=== PATIENT | female | born 1950 | race Caucasian/White ===

== ENCOUNTER 2019-01-19 10:13 | Day surgery (SDC) | payer MEDICARE ==
[~2019-01-19] VITALS: Ht 180.3 cm; Wt 72.6 kg
[2019-01-19] MEDS ORDERED: Triamterene W/1 EACH (10:30)
[2019-01-19] MEDS ORDERED: ATEN50 (10:30)
[2019-01-19] MEDS ORDERED: ASPI325EC (10:30)
[2019-01-19] MEDS ORDERED: Klor-Con 1010 MEQ (10:31)
[2019-01-19] MEDS ORDERED: SERT50 (10:32)
[2019-01-19] MEDS ORDERED: SERT100 (10:32)
[2019-01-19] MEDS ORDERED: OMEPRAZOLE MAGN20 MG (10:33)
[2019-01-19] MEDS ORDERED: Levothyroxine200 MCG PO (10:33)
[2019-01-19] MEDS ORDERED: FOLI1 (10:34)
[2019-01-19] MEDS ORDERED: FISH OIL 1,0001 EAC1 (10:34)
[2019-01-19] MEDS ORDERED: ERGO400 (10:34)
[2019-01-19] MEDS ORDERED: CALCIUM (10:35)
[2019-01-19] MEDS ORDERED: POTCHL10ER (10:36)
[2019-01-19] MEDS ORDERED: GLUCOSAMINE &1 EACH (10:36)
[2019-01-19] MEDS ORDERED: Zoloft50 MG (10:37)
--- NOTE | 2019-01-19 11:22 | NUR ---
01/19/19 1122 Jake Morrow PROBE USED FOR GASTRIC AVMS
--- NOTE | 2019-01-19 12:15 | NUR ---
01/19/19 1215 Arely Vernon REC'D REPORT FROM JENNIE BALLESTEROS ON PT UPON ARRIVAL TO STEP DOWN UNIT. PT AWAKE, TALKING, DENIES ANY PAIN OR CHEST PAIN AT THIS TIME. WILL DO AN EKG ORDERED BY MD FRANKLIN POST PROCEDURE.
== END 2019-01-19 13:10 | disposition home or self-care (01) ==
LOC: ORSCSDS 10:13
PROVIDERS: Internal Medicine Gastroenterology
PROC: 0DB98ZX Excision of Duodenum, Via Natural or Artificial Opening Endoscopic, Diagnostic (ICD-10-PCS; principal; 2019-01-19 11:30)
PROC: 0DBP8ZX Excision of Rectum, Via Natural or Artificial Opening Endoscopic, Diagnostic (ICD-10-PCS; principal; 2019-01-19 11:30)
PROC: 0DB68ZX Excision of Stomach, Via Natural or Artificial Opening Endoscopic, Diagnostic (ICD-10-PCS; principal; 2019-01-19 11:30)
PROC: 0DB58ZX Excision of Esophagus, Via Natural or Artificial Opening Endoscopic, Diagnostic (ICD-10-PCS; principal; 2019-01-19 11:30)
PROC: 0DBK8ZX Excision of Ascending Colon, Via Natural or Artificial Opening Endoscopic, Diagnostic (ICD-10-PCS; principal; 2019-01-19 11:30)
DX: K21.9 Gastro-esophageal reflux disease without esophagitis (principal); D50.9 Iron deficiency anemia, unspecified; D12.2 Benign neoplasm of ascending colon; D12.8 Benign neoplasm of rectum; K21.0 Gastro-esophageal reflux disease with esophagitis; K29.70 Gastritis, unspecified, without bleeding; K64.8 Other hemorrhoids; I10 Essential (primary) hypertension; E03.9 Hypothyroidism, unspecified; F17.210 Nicotine dependence, cigarettes, uncomplicated; Z79.899 Other long term (current) drug therapy
CPT/HCPCS: 88305; 93005; 93010; J7120

== ENCOUNTER 2020-04-19 06:41 | Day surgery (SDC) | payer MEDICARE ==
[~2020-04-19] VITALS: Ht 177.8 cm; Wt 77.0 kg
[~2020-04-19 06:41] MED LIST: ASPI325 PO; ASPI325EC; ATEN50; ATEN50 PO; CALCIUM; ERGO400; EUTHYROX125 MCG PO; FISH OIL 1,0001 EAC1; FOLI1; GLUCOSAMINE &1 EACH; HYDCHL25 PO; Klor-Con 1010 MEQ; Levothyroxine200 MCG PO; OMEP20ER PO; OMEPRAZOLE MAGN20 MG; POTA10T PO; POTCHL10ER; SERT100; SERT100 PO; SERT50; SERT50 PO; TRIAMTERENE50 MG PO; Triamterene W/1 EACH; Zoloft50 MG
--- NOTE | 2020-04-19 09:05 | NUR ---
PT TO RECOVERY ROOM POST PROCEDURE. PT DROWSY, BUT EASILY ROUSABLE, ANSWERING QUESTIONS APPROPRIATELY, DENIES PAIN POST PROCEDURE. MONITOR SR WITH 1ST DEGREE 60'S, B/P 141/63, AFEBRILE, SPO2 94% RA. R GROIN SITE NO SWELLNG/HEMATOMA, TEGADERM DRSG INTACT; ANGIO SEAL DEPLOYED AT 0841. BLE: 1+ PULSES. PT TAKING SIPS OF H2O WITHOUT ISSUE.
--- NOTE | 2020-04-19 09:49 | NUR ---
PT BACK TO RECOVERY ROOM VIA [facility] AFTER PROCEDURE. RIGHT RADIAL ACCESS SITE WITH TR BAND AND SPLINT IN PLACE. SMALL AMOUNT OF OOZING NOTED UNDER TR BAND. ADDITIONAL 2 CC AIR PUT IN BAND.
--- NOTE | 2020-04-19 10:18 | NUR ---
PT EATING BREAKFAST, DENIES NEEDS. VSS, CALL LIGHT IN REACH. RIGHT RADIAL SITE CLEAN, DRY, AND INTACT.
--- NOTE | 2020-04-19 11:30 | NUR ---
TR BAND HAS BEEN FULLY DEFLATED. NO BLEEDING OR SWELLING NOTED TO RIGHT WRIST. SMALL AMOUNT OF BRUISING NOTED RIGHT AROUND PUCTURE SITE. PT DENIES DISCOMFORT TO AREA.
--- NOTE | 2020-04-19 12:15 | NUR ---
IV DC'D, CATH INTACT. PT GIVEN DC INSTRUCTIONS AND FOLLOW UP INFORMATION, VERBALIZED UNDERSTANDING. DENIES ANY PAIN OR DISCOMFORT AT TIME OF DISCHARGE. VSS. OUT TO CAR VIA WHEELCHAIR, TO TAKE PT HOME.
== END 2020-04-19 23:18 | disposition home or self-care (01) ==
LOC: MHTC 06:41
PROC: 4A023N7 Measurement of Cardiac Sampling and Pressure, Left Heart, Percutaneous Approach (ICD-10-PCS; principal; 2020-04-19)
PROC: B201YZZ Plain Radiography of Multiple Coronary Arteries using Other Contrast (ICD-10-PCS; principal; 2020-04-19)
PROC: B205YZZ Plain Radiography of Left Heart using Other Contrast (ICD-10-PCS; principal; 2020-04-19)
DX: I71.4 Abdominal aortic aneurysm, without rupture (principal); I25.10 Atherosclerotic heart disease of native coronary artery without angina pectoris; I10 Essential (primary) hypertension; E03.9 Hypothyroidism, unspecified; Z87.891 Personal history of nicotine dependence; Z79.82 Long term (current) use of aspirin; Z79.899 Other long term (current) drug therapy; I48.91 Unspecified atrial fibrillation; M19.90 Unspecified osteoarthritis, unspecified site
CPT/HCPCS: 76937; 93454; 99152; 99153; C1769; C1894; J1644; J2250; J3010; J7030; J7040; Q9967

== ENCOUNTER → 2020-12-11 | Outpatient (CLI) | payer MEDICARE ==
[~2020-12-11] MED LIST changes: +ASCO500 PO; +CALCIUM 600 +1 EA11 PO; +ERGO50000 PO; +MECL25 PO; +MULVITB PO; +Robaxin-750750 MG PO; +TRAM50 PO
== END | disposition home or self-care (01) ==
LOC: LAB 11:06 → LAB SHORT 11:06
DX: D48.5 Neoplasm of uncertain behavior of skin (principal)
CPT/HCPCS: 88305

== ENCOUNTER 2020-12-21 14:21 | Emergency (ER) | payer MEDICARE ==
[~2020-12-21] VITALS: Ht 180.3 cm; Wt 78.0 kg
[~2020-12-21 14:21] MED LIST changes: -ASCO500 PO; -CALCIUM 600 +1 EA11 PO; -ERGO50000 PO; -MECL25 PO; -MULVITB PO; -Robaxin-750750 MG PO; -TRAM50 PO
[2020-12-21] MEDS ORDERED: ERGO50000 PO (14:40)
[2020-12-21] MEDS ORDERED: MULVITB PO (14:41)
[2020-12-21] MEDS ORDERED: ASCO500 PO (14:42)
[2020-12-21] MEDS ORDERED: CALCIUM 600 +1 EA11 PO (14:42)
[2020-12-21 15:23] LABS: BASOPHILS ABSOLUTE AUTO 0.06 K/mm3 (0.00-0.23); BASOPHILS PERCENT AUTO 1 % (0-2); EOSINOPHILS ABSOLUTE AUTO 0.12 K/mm3 (0.00-0.68); EOSINOPHILS PERCENT AUTO 2 % (0-6); Hematocrit 41.3 % (33.0-51.0); Hemoglobin 12.1 g/dL (11.5-16.0); IMMATURE GRAN ABSOLUTE AUTO 0.02 K/mm3 (0.00-0.10); IMMATURE GRAN PERCENT AUTO 0 % (0-1); LYMPHOCYTES PERCENT AUTO 26 % (21-46); MONOCYTES ABSOLUTE AUTO 0.69 K/mm3 (0.16-1.47); MONOCYTES PERCENT AUTO 9 % (4-13); Mean Corpuscular HGB Conc 29.3 g/dL (31.5-36.5); Mean Corpuscular Volume 82 fL (80-100); NEUTROPHILS PERCENT AUTO 62 % (41-73); Platelet Count 238 K/mm3 (150-400); RDW Coefficient Variation 16.6 % (11.7-14.2); RDW Standard Deviation 49.4 fL (35.1-46.3); Red Blood Cell Count 5.04 M/mm3 (3.80-5.20); White Blood Cell Count 7.59 K/mm3 (4.00-11.30)
[2020-12-21 15:33] LABS: Alanine Aminotransfer (ALT/SGP 21 U/L (12-78); Albumin, Blood 3.9 g/dL (3.4-5.0); Albumin/Globulin Ratio 1.1 (0.8-1.8); Alk Phos 62 U/L (50-136); Anion Gap 8 mmol/L (6-16); Aspartate Aminotrans (AST/SGOT 39 U/L (12-37); Bilirubin, Total 0.6 mg/dL (0.1-1.0); Blood Urea Nitrogen 24 mg/dL (8-24); Bun/Creatinine Ratio 26.1 (12.0-20.0); CO2, Blood 25 mmol/L (21-32); Calcium, Blood 9.3 mg/dL (8.5-10.1); Chloride, Blood 103 mmol/L (98-108); Creatinine, Blood 0.92 mg/dL (0.40-1.00); Globulin, Blood 3.4 g/dL (2.2-4.0); Glomerular Filtration Rate >60 (60-); Glucose, Blood 105 mg/dL (70-99); Magnesium, Blood 1.8 mg/dL (1.6-2.4); Potassium, Blood 4.4 mmol/L (3.5-5.5); Sodium, Blood 136 mmol/L (136-145); Total Protein, Blood 7.3 g/dL (6.4-8.2)
[2020-12-21] MEDS ORDERED: TRAM50 PO (16:37)
[2020-12-21] MEDS ORDERED: MECL25 PO (16:37)
[2020-12-21] MEDS ORDERED: Robaxin-750750 MG PO (16:37)
== END 2020-12-21 18:10 | disposition home or self-care (01) ==
LOC: ER 14:21
PROVIDERS: Emergency Medicine
DX: H81.10 Benign paroxysmal vertigo, unspecified ear (principal); S16.1XXA Strain of muscle, fascia and tendon at neck level, initial encounter; I48.91 Unspecified atrial fibrillation; Z79.899 Other long term (current) drug therapy; Z79.82 Long term (current) use of aspirin; W01.0XXA Fall on same level from slipping, tripping and stumbling without subsequent striking against object, initial encounter
CPT/HCPCS: 36415; 70450; 80053; 83735; 85025; 93005; 93010; 96374; 96375; 99285-25; A9270; J1885; J2550; J3360

== ENCOUNTER 2023-01-01 17:46 | Inpatient (IN) | payer MEDICARE ==
[~2023-01-01] VITALS: Ht 177.8 cm; Wt 78.8 kg
[~2023-01-01 17:46] MED LIST changes: +ASCO500 PO; +CALCIUM 600 +1 EA11 PO; +ERGO50000 PO; +MECL25 PO; +MULVITB PO; +Robaxin-750750 MG PO; +TRAM50 PO
[2023-01-01 18:48] LABS: BASOPHILS ABSOLUTE AUTO 0.01 K/mm3 (0.00-0.23); BASOPHILS PERCENT AUTO 0 % (0-2); EOSINOPHILS ABSOLUTE AUTO 0.13 K/mm3 (0.00-0.68); EOSINOPHILS PERCENT AUTO 2 % (0-6); IMMATURE GRAN ABSOLUTE AUTO 0.02 K/mm3 (0.00-0.10); IMMATURE GRAN PERCENT AUTO 0 % (0-1); LYMPHOCYTES ABSOLUTE AUTO 1.52 K/mm3 (0.84-5.20); LYMPHOCYTES PERCENT AUTO 23 % (21-46); MONOCYTES ABSOLUTE AUTO 0.52 K/mm3 (0.16-1.47); MONOCYTES PERCENT AUTO 8 % (4-13); Mean Corpuscular HGB 16.1 pg (26.0-34.0); Mean Corpuscular HGB Conc 24.8 g/dL (31.5-36.5); Mean Corpuscular Volume 65 fL (80-100); Mean Platelet Volume 10.8 fL (9.1-12.4); NEUTROPHILS ABSOLUTE AUTO 4.47 K/mm3 (1.96-9.15); NEUTROPHILS PERCENT AUTO 67 % (41-73); NRBC ABSOLUTE 0.02 K/mm3 (0.00-0.02); NRBC Auto 0.3 /100 WBC (0.0-0.2); Platelet Count 253 K/mm3 (150-400); RDW Coefficient Variation 19.9 % (11.7-14.2); RDW Standard Deviation 46.1 fL (35.1-46.3); Red Blood Cell Count 2.48 M/mm3 (3.80-5.20); White Blood Cell Count 6.67 K/mm3 (4.00-11.30)
[2023-01-01 18:50] LABS: Hematocrit 16.1 % (33.0-51.0)
[2023-01-01 19:09] LABS: Albumin, Blood 4.1 g/dL (3.4-5.0); Albumin/Globulin Ratio 1.5 (0.8-1.8); Bilirubin, Total 0.4 mg/dL (0.1-1.0); Bun/Creatinine Ratio 25.8 (12.0-20.0); Calcium, Blood 9.1 mg/dL (8.5-10.1); Creatinine, Blood 1.2 mg/dL (0.40-1.00); Globulin, Blood 2.8 g/dL (2.2-4.0); Total Protein, Blood 6.9 g/dL (6.4-8.2)
[2023-01-02] MEDS ORDERED: DYAZIDE 37.5-21 EACH PO (00:05)
--- NOTE | 2023-01-02 00:51 | NUR ---
SECOND UNIT OF PRBCS COMPLETE. PT WITH VS OF T 98.3, RR OF 17, HR OF 72, BP OF 125/74, AND SPO2 OF 97% ON RA. PT REPORTS IMPROVEMENT IN DIZZINESS, GAIT APPEARS STEADIER. PT SKIN LESS PALE. REPORTS IMPROVEMENT IN SHORTNESS OF BREATH. LABS TO BE DRAWN SHORTLY FOR CBC.
[2023-01-02 01:45] LABS: BASOPHILS ABSOLUTE AUTO 0.05 K/mm3 (0.00-0.23); BASOPHILS PERCENT AUTO 1 % (0-2); EOSINOPHILS ABSOLUTE AUTO 0.16 K/mm3 (0.00-0.68); EOSINOPHILS PERCENT AUTO 2 % (0-6); Hematocrit 20.1 % (33.0-51.0); IMMATURE GRAN ABSOLUTE AUTO 0.02 K/mm3 (0.00-0.10); IMMATURE GRAN PERCENT AUTO 0 % (0-1); LYMPHOCYTES ABSOLUTE AUTO 1.71 K/mm3 (0.84-5.20); LYMPHOCYTES PERCENT AUTO 23 % (21-46); MONOCYTES ABSOLUTE AUTO 0.57 K/mm3 (0.16-1.47); MONOCYTES PERCENT AUTO 8 % (4-13); Mean Corpuscular HGB 19.5 pg (26.0-34.0); Mean Corpuscular HGB Conc 28.4 g/dL (31.5-36.5); Mean Corpuscular Volume 69 fL (80-100); Mean Platelet Volume 10.3 fL (9.1-12.4); NEUTROPHILS PERCENT AUTO 67 % (41-73); NRBC ABSOLUTE 0.02 K/mm3 (0.00-0.02); NRBC Auto 0.3 /100 WBC (0.0-0.2); Platelet Count 216 K/mm3 (150-400); RDW Standard Deviation 56.4 fL (35.1-46.3); Red Blood Cell Count 2.92 M/mm3 (3.80-5.20); White Blood Cell Count 7.51 K/mm3 (4.00-11.30)
[2023-01-02 02:13] LABS: Hemoglobin 5.7 g/dL (11.5-16.0)
[2023-01-02 05:08] LABS: Albumin, Blood 3.6 g/dL (3.4-5.0); Albumin/Globulin Ratio 1.6 (0.8-1.8); Bilirubin, Total 1.6 mg/dL (0.1-1.0); Calcium, Blood 8.7 mg/dL (8.5-10.1); Globulin, Blood 2.3 g/dL (2.2-4.0); Potassium, Blood 3.2 mmol/L (3.5-5.5); Total Protein, Blood 5.9 g/dL (6.4-8.2)
[2023-01-02 10:24] LABS: Hematocrit 27.3 % (33.0-51.0)
--- NOTE | 2023-01-02 17:35 | NUR ---
SHIFT SUMMARY PT REMAINS ALERT AND ORIENTED. BP STABLE. HR WAS NSR 70'S, BUT TELEMETRY DISCONTINUED. O2 SATS REMAIN ABOVE 90% ON RA. PT COMPLAINED OF HEADACHE THIS AM THAT HAS RESOLVED. PT STATES THE TINGLING IN HER LEGS IS ALMOST GONE. PT ABLE TO AMBULATE TO BATHROOM WITH SBA. WILL CONTINUE TO MONITOR AND REPORT TO ONCOMING RN. CALL LIGHT IN REACH AND PT ABLE TO CALL APPROPRIATELY
--- NOTE | 2023-01-02 20:03 | NUR ---
TRANSFER SUMMARY PTN TRANSFER FROM PCU AT 1845. REPORT RECEIVED FROM SUSAN. PASS DOWN TO JENNIE CORNELIUS, TO INCLUDE ADMIT DIAGNOSES OF SEVERE ANEMIA. PTN REPORTED TO HAVE LOW HGB, TRANSFUSED WITH 2 UNITS BLOOD IN ER, THEN WHAT SOUNDS LIKE ANOTHER 2 UNITS WITH CURRENT HGB 8.0, AND FEELING BETTER. POSSIBITY OF CONSULT FOR COLONOSCOPY TOMORROW. CONTINUE CARE.
--- NOTE | 2023-01-03 05:02 | NUR ---
SHIFT SUMMARY DR HICKMAN CAME IN AND REPORTS PATIENT DIET CHANGED TO CLEAR LIQUID AND NPO AFTER 06:00 TODAY FOR PROCEDURE. AXOX 4 AND INDEPENDENT IN ROOM. TELE DC'D PER DAY ORDERS. DENIES CHEST PAIN, SOB, AND N/V. VSS/AFEBRILE. PIV REMAINS INTACT. ABLE TO SLEEP MOST OF THE SHIFT. COOPERATIVE WITH CARE. CALL LIGHT IN REACH. BED IN LOWEST POSITION. WILL CONTINUE TO MONITOR UNTIL DAY SHIFT NURSE ASSUMES CARE.
[2023-01-03 05:16] LABS: Hemoglobin 7.8 g/dL (11.5-16.0)
--- NOTE | 2023-01-03 12:18 | NUR ---
PT ARRIVED TO UNIT VIA GURN. ABLE TO TRANSFER TO GURN INDEPENDENTLY. History, Chart, Medications and Allergies reviewed before start of procedure. Lungs clear T/O to Auscultation. Patient confirms NPO status and agrees with scheduled surgery.
--- NOTE | 2023-01-03 12:45 | NUR ---
01/03/23 1245 Luís Mina HISTORY, CHART, MEDICATIONS AND ALLERGIES REVIEWED BEFORE START OF PROCEDURE. PATIENT CONFIRMS NPO STATUS AND AGREES WITH SCHEDULED PROCEDURE. 3-LEAD EKG REVIEWED WITH PHYSICIAN PRIOR TO START OF PROCEDURE. MONITOR INTACT WITH CONTINUOUS PULSE OXIMETRY,CAPNOGRAPHY, 3-LEAD EKG, INTERMITTENT BP. SUPPLEMENTAL O2 TO BE TITRATED THROUGHOUT PROCEDURE TO MAINTAIN O2 SATURATION ABOVE 90%. PATIENT DETERMINED TO BE ASA APPROPRIATE FOR PROPOFOL SEDATION PRIOR TO START OF PROCEDURE BY DR. HICKMAN.
--- NOTE | 2023-01-03 17:18 | NUR ---
DAYSHIFT SUMMARY Per GI held PO meds this morning, NPO since 6am. IV Ferrlecit given. Patient left unit at 1200 for EGD. Patient returned at 1330, plan is to do colonoscopy tomorrow. Clear liquid diet today ordered, NPO at midnight. Suprep bowel prep started at 1700, next dose will be at 0500. Vitals stable. Will continue plan of care.
--- NOTE | 2023-01-04 04:29 | NUR ---
SHIFT SUMMARY PATIENT HAD NO ACUTE CHANGES. AXOX 4 AND INDEPENDENT IN ROOM. FINISHED UP SUPREP BOWEL PREP FROM DAY SHIFT AND WILL START 05:00 SCHEDULE SECOND DOSE FOR COLONOSCOPY TODAY. DENIES PAIN, SOB, AND N/V. VSS/AFEBRILE. PIV REMAINS INTACT. COOPERATIVE WITH CARE. CALL LIGHT IN REACH. BED IN LOWEST POSITION. WILL CONTINUE TO MONITOR UNTIL DAY SHIFT NURSE ASSUMES CARE.
--- NOTE | 2023-01-04 12:52 | NUR ---
LATE ENTRY FOR 1215 PT ARRIVED TO UNIT VIA GURN. ABLE TO TRANSFERS INDEPENDENTLY TO RN IN ROOM. History, Chart, Medications and Allergies reviewed before start of procedure. Lungs clear T/O to Auscultation. Patient confirms NPO status and agrees with scheduled surgery.
--- NOTE | 2023-01-04 16:53 | NUR ---
SHIFT SUMMARY PT AWAKE DURING SHIFT REPORT, UP TO BTHRM D/T BOWEL PREP FOR SCOPE. PROCEDURE DELAYED SOME D/T EMERGENCIES, BUT PT LATER TAKEN DOWN AT 12:15, RETURNING AT 13:45. PT TOLERATED PROCEDURE WELL. PER REPORT, PT CLEARED BY DR HICKMAN FOR D/C HOME; NO ACUTE FINDINGS. SM AREA FOUND FOR POSSIBLE COLITIS; BIOPIES TAKEN. DR PLAZA ALREADY IN TO SEE PT THIS AM, PRIOR TO GOING DOWN FOR SCOPE. PT TOLERATING CL DIET. PER REPORT, DIET TO BE ADVANCED TO REG BY MARYLOU. NO ORDERS PLACED TO PRESENT. PT IS INDEPENDENT IN , RESTING QUIETLY AT THIS TIME. CALL LT IN REACH.
[2023-01-05 05:12] LABS: Hematocrit 27.7 % (33.0-51.0); Hemoglobin 7.8 g/dL (11.5-16.0); Mean Corpuscular HGB 21.7 pg (26.0-34.0); Mean Corpuscular HGB Conc 28.2 g/dL (31.5-36.5); Mean Corpuscular Volume 77 fL (80-100); Mean Platelet Volume 10.4 fL (9.1-12.4); Platelet Count 222 K/mm3 (150-400); RDW Coefficient Variation 27.7 % (11.7-14.2); RDW Standard Deviation 68.6 fL (35.1-46.3); White Blood Cell Count 8.29 K/mm3 (4.00-11.30)
[2023-01-05 05:35] LABS: Albumin, Blood 3.3 g/dL (3.4-5.0); Albumin/Globulin Ratio 1.4 (0.8-1.8); Bilirubin, Total 0.6 mg/dL (0.1-1.0); Bun/Creatinine Ratio 10.7 (12.0-20.0); Creatinine, Blood 0.94 mg/dL (0.40-1.00); Globulin, Blood 2.4 g/dL (2.2-4.0); Potassium, Blood 3.5 mmol/L (3.5-5.5); Total Protein, Blood 5.7 g/dL (6.4-8.2)
--- NOTE | 2023-01-05 08:32 | NUR ---
SUMMARY PT SLEPT MOST OF NIGHTWITH NO ACUTE CHANGES. PT PLANNING FOR DISCHARGE TODAY.
--- NOTE | 2023-01-05 11:43 | NUR ---
PT DISCHARGED AT 1130 WITH ALL PAPERWORK REVIEWED AND EDUCATIONAL MATERIAL SENT WITH PT. PT TO FOLLOW UP WITH PCP. NO DISTESS NOTED AND HAS BEEN CLEARED TO DC BY DR HICKMAN. NO DISTRESS NOTED ESCORTED OUT VIA WHEELCHAIR BY THIS PANTOGRAPH TRANSFERRER AND TO TRANSPORT.
== END 2023-01-05 11:46 | disposition home or self-care (01) | DRG 812 ==
LOC: ER 17:46 → PCU 22:45 → MEDS 22:45 → PCU 23:40 → MEDS 01-02 18:42
PROVIDERS: Internal Medicine; Internal Medicine Gastroenterology; Student in an Organized Health Care Education/Training Program; ADMIT Internal Medicine
PROC: 30233N1 Transfusion of Nonautologous Red Blood Cells into Peripheral Vein, Percutaneous Approach (ICD-10-PCS; 2023-01-01)
PROC: 0DB68ZX Excision of Stomach, Via Natural or Artificial Opening Endoscopic, Diagnostic (ICD-10-PCS; 2023-01-03)
PROC: 0DB98ZX Excision of Duodenum, Via Natural or Artificial Opening Endoscopic, Diagnostic (ICD-10-PCS; principal; 2023-01-03 12:00)
PROC: 0DBK8ZX Excision of Ascending Colon, Via Natural or Artificial Opening Endoscopic, Diagnostic (ICD-10-PCS; 2023-01-04)
PROC: 0DBL8ZX Excision of Transverse Colon, Via Natural or Artificial Opening Endoscopic, Diagnostic (ICD-10-PCS; 2023-01-04)
PROC: 0DBN8ZX Excision of Sigmoid Colon, Via Natural or Artificial Opening Endoscopic, Diagnostic (ICD-10-PCS; 2023-01-04)
PROC: 0DBP8ZX Excision of Rectum, Via Natural or Artificial Opening Endoscopic, Diagnostic (ICD-10-PCS; 2023-01-04)
PROC: 0DBM8ZX Excision of Descending Colon, Via Natural or Artificial Opening Endoscopic, Diagnostic (ICD-10-PCS; 2023-01-04)
PROC: 0DBH8ZX Excision of Cecum, Via Natural or Artificial Opening Endoscopic, Diagnostic (ICD-10-PCS; 2023-01-04)
DX: D50.9 Iron deficiency anemia, unspecified (principal); N17.9 Acute kidney failure, unspecified; I50.32 Chronic diastolic (congestive) heart failure; E03.9 Hypothyroidism, unspecified; I48.0 Paroxysmal atrial fibrillation; K31.4 Gastric diverticulum; I11.0 Hypertensive heart disease with heart failure; E87.6 Hypokalemia; K57.30 Diverticulosis of large intestine without perforation or abscess without bleeding; F14.10 Cocaine abuse, uncomplicated; K64.4 Residual hemorrhoidal skin tags; Z85.3 Personal history of malignant neoplasm of breast; Z90.10 Acquired absence of unspecified breast and nipple; Z92.21 Personal history of antineoplastic chemotherapy; Z87.891 Personal history of nicotine dependence; Z95.2 Presence of prosthetic heart valve; Z79.899 Other long term (current) drug therapy; Z79.891 Long term (current) use of opiate analgesic; Z98.890 Other specified postprocedural states; Z92.3 Personal history of irradiation
CPT/HCPCS: 36415; 36430; 71046; 80053; 84484; 85014; 85018; 85025; 85027; 86850; 86900; 86901; 86923; 88305; 88342; 93005; 93010; 97116; 97116-CQ; 97162; 97530; 97530-CQ; 99285-25; A9270; J2704; J2916; J7030; J7120; P9016

== ENCOUNTER 2024-08-09 05:57 | Day surgery (SDC) | payer OTHER ==
[~2024-08-09] VITALS: Ht 177.8 cm; Wt 64.4 kg
[~2024-08-09 05:57] MED LIST changes: +DYAZIDE 37.5-21 EACH PO; +FERROUS SULFATE; +SUFLAVE POWDER1 EACH; +vitamin b
[2024-08-09] MEDS ORDERED: NS 0 ML IV ONE ×3 (06:27→06:51)
[2024-08-09] MEDS ORDERED: Heparin Sodium 1000 Units/ML 10ML MDV ONE (06:27)
[2024-08-09] MEDS ORDERED: Nitroglycerin 2 MG/20 ML BTL ONE (06:28)
[2024-08-09] MEDS ORDERED: NiCARdipine HCL 1,000 MCG/5 ML SYR ONE (06:28)
[2024-08-09] MEDS ORDERED: Midazolam HCl 1MG / ML 2ML Vial ONE (06:50)
[2024-08-09] MEDS ORDERED: FentaNYL Citrate 50 MCG/ML 2 ML Injection ONE (06:50)
[2024-08-09 07:03] VITALS: BP 138/86
== END 2024-08-09 07:35 | disposition home or self-care (01) ==
LOC: MHTC 05:57
DX: T82.857A Stenosis of other cardiac prosthetic devices, implants and grafts, initial encounter (principal); I25.10 Atherosclerotic heart disease of native coronary artery without angina pectoris; Z95.2 Presence of prosthetic heart valve; Z53.9 Procedure and treatment not carried out, unspecified reason; I48.0 Paroxysmal atrial fibrillation; I10 Essential (primary) hypertension; E03.9 Hypothyroidism, unspecified; E78.5 Hyperlipidemia, unspecified; K21.9 Gastro-esophageal reflux disease without esophagitis; Z79.890 Hormone replacement therapy; Z79.899 Other long term (current) drug therapy
CPT/HCPCS: A9270; J1644; J2250; J3010; J7030; J7050